=== PATIENT | male | born 1975 | race Caucasian/White ===

== ENCOUNTER 2018-09-02 09:54 | Emergency (ER) | payer OTHER ==
[~2018-09-02] VITALS: Ht 177.8 cm; Wt 112.9 kg
[~2018-09-02 09:54] MED LIST: ALLOPURINOL300 MG; CELEBREX50 MG PO; DIOVAN HCT 160-1 TAB PO; METFORMIN HCL1000 M1; NORVASC10 MG
[2018-09-02] MEDS ORDERED: AVALIDE 300-121 EACH PO (10:04)
[2018-09-02] MEDS ORDERED: KETO10TA2 PO (13:47)
[2018-09-02] MEDS ORDERED: TAMS0.4C PO (13:47)
== END 2018-09-02 14:07 | disposition home or self-care (01) ==
LOC: ER 09:54
DX: N20.0 Calculus of kidney (principal); R10.31 Right lower quadrant pain

== ENCOUNTER → 2019-01-16 | Emergency (ER) | payer OTHER ==
[~2019-01-16] MED LIST changes: +AVALIDE 300-121 EACH PO; +KETO10TA2 PO; +TAMS0.4C PO
== END | disposition left against medical advice (07) ==
LOC: ER 15:41
DX: Z53.20 Procedure and treatment not carried out because of patient's decision for unspecified reasons (principal)